=== PATIENT | female | born 1995 | race Caucasian/White ===

== ENCOUNTER 2021-09-28 14:20 | Emergency (ER) | payer OTHER, SELFPAY ==
--- NOTE | 2021-09-28 14:27 | ECG_ITS ---
Measurements Intervals [place] Rate: 113 P: 72 AL: 160 QRS: 79 QRSD: 91 T: 55 QT: 299 QTc: 410 Interpretive Statements SINUS TACHYCARDIA POSSIBLE LEFT ATRIAL ENLARGEMENT ST ABNORMALITY IN ANTEROLATERAL LEADS- CONSIDER ISCHEMIA BASELINE ARTIFACT- I, II, III, AVR, AVL ABNORMAL ECG Electronically Signed On 09-28-2021 15:27:48 PAIN MEDICINE PHYSICIAN by Cl Vargas D.O.
[2021-09-28 14:32] VITALS: BP 136/84; PULSE 100; RESP 18; TEMP 36.2; O2SAT 96
[2021-09-28] MEDS: SODIUM CHLORIDE 0.9% IV 500 ML 999 ML IV CONT (15:27)
[2021-09-28 15:29] LABS: Basophils Absolute Auto 0.02 K/mm3 (0.00-0.10); Basophils Percent Auto 0.2 % (0.0-1.0); Eosinophils Absolute Auto 0.03 K/mm3 (0.02-0.50); Eosinophils Percent Auto 0.4 % (1.0-6.0); Hematocrit 41.7 % (35.0-49.0); Hemoglobin 13.4 g/dL (12.0-15.0); Immature Granulocyte Absolute 0.02 K/mm3 (0.00-0.00); Immature Granulocyte Percent A 0.2 % (0.0-0.0); Lymphocytes Absolute Auto 1.13 K/mm3 (1.10-4.50); Mean Corpuscular HGB Conc 32.1 g/dL (32.0-36.0); Mean Corpuscular Hemoglobin 28.3 pg (27.0-31.0); Mean Platelet Volume 9.5 fl (9.2-11.8); Neutrophils Absolute Auto 6.5 K/mm3 (1.7-7.2); Neutrophils Percent Auto 80.2 % (50.0-70.0); Platelet Count Result 255 K/mm3 (150-420); Red Blood Count 4.74 M/mm3 (4.20-5.40); Red Cell Distribution Width 13.2 % (11.6-14.4); White Blood Count 8.1 K/mm3 (4.8-10.8)
--- NOTE | 2021-09-28 15:54 | ED.ARRPALP ---
HPI - Arrhythmia/Palpitations General Chief Complaint: Arrhythmia/Palpitations Stated Complaint: heart beating rapidly Source: patient and family Mode of arrival: ambulatory Limitations: no limitations History of Present Illness HPI narrative: this is a 26-year-old female that presents with her boyfriend has been having increased heart rate with palpitations, her father's recently diagnosed with atrial fibrillation, the patient appears anxious but denies having anxiety or panic attacks no significant past medical history there is no chest pain no shortness of breath no abdominal pain no flank pain no fever chills no nausea vomiting no diarrhea or constipation. heart rate has been as high as 113 but currently is 100. complaint: rapid heart beat Onset (ago): hour(s) Duration: intermittent Severity: mild Context: occurred during rest Associated symptoms: denies other symptoms Related Data Home Medications Medication Instructions Recorded Confirmed No Home Medications 09/28/21 09/28/21 Allergies Allergy/AdvReac Type Severity Reaction Status Date / Time No Known Allergies Allergy Verified 09/28/21 14:41 Review of Systems Review of Systems: All systems reviewed & are unremarkable except as noted in HPI and below PMFSH Past Medical History Medical History Patient denies medical problems Exam Const: General: healthy appearing, no acute distress and alert Orientation/consciousness: patient oriented x3 HENMT: Head: normal to inspection Eyes: Conjunctivae: conjunctivae normal Pupils: Equal, round and reactive pupils present EOM: EOMs intact bilaterally Direct Ophthalmoscopy: no photophobia Neck: Neck: normal visual inspection and no lymphadenopathy Chest: Chest palpation & inspection: normal inspection of the chest Resp: Effort & Inspection: normal respiratory effort Cardio: Rate: regular rate and tachycardic GI: Inspection: normal to inspection Percussion: Yes normal to percussion Auscultation: normal bowel sounds Back/Spine/Pelvis: Back: no CVA tenderness Skin: General skin exam: normal color and no rashes or lesions noted Neuro: General: oriented to person, oriented to place, oriented to time and patient oriented x3 Extrem: General: normal to inspection, full ROM and capillary refill normal Psych: Appearance: grossly normal and well kempt Course Course Emergency Course: Labs reviewed, patient received IV fluids and heart rate currently is in the low 90s patient is asymptomatic and advised to follow-up with her primary care physician. Vital Signs Vital signs: Vital Signs Temperature 36.2 C L 09/28/21 14:32 Pulse Rate 100 09/28/21 14:32 Respiratory Rate 18 09/28/21 14:32 Blood Pressure 136/84 09/28/21 14:32 Pulse Oximetry 96 09/28/21 14:32 Temperature 36.2 C L 09/28/21 14:32 Pulse Rate 100 09/28/21 14:32 Respiratory Rate 18 09/28/21 14:32 Blood Pressure 136/84 09/28/21 14:32 Pulse Oximetry 96 09/28/21 14:32 MDM - Arrhythmia/Palpitations Lab Data Result diagrams: 09/28/21 15:19 09/28/21 15:19 Labs: Lab Results 09/28/21 09/28/21 Range/Units 15:19 15:19 WBC 8.1 (4.8-10.8) K/mm3 RBC 4.74 (4.20-5.40) M/mm3 Hgb 13.4 (12.0-15.0) g/dL Hct 41.7 (35.0-49.0) % MCV 88.0 (78.0-102.0) fL MCH 28.3 (27.0-31.0) pg MCHC 32.1 (32.0-36.0) g/dL RDW 13.2 (11.6-14.4) % Plt Count 255 (150-420) K/mm3 MPV 9.5 (9.2-11.8) fl Immature Gran % (Auto) 0.2 H (0.0-0.0) % Neut % (Auto) 80.2 H (50.0-70.0) % Lymph % (Auto) 14.0 L (18.0-42.0) % [place] % (Auto) 5.0 (2.0-11.0) % Eos % (Auto) 0.4 L (1.0-6.0) % Baso % (Auto) 0.2 (0.0-1.0) % Lymph # (Auto) 1.13 (1.10-4.50) K/mm3 [place] # (Auto) 0.40 (0.10-0.90) K/mm3 Eos # (Auto) 0.03 (0.02-0.50) K/mm3 Baso # (Auto) 0.02 (0.00-0.10) K/mm3 Abs Immat Gran (auto) 0.02
[2021-09-28 15:57] LABS: Alanine Aminotransferase 18 U/L (14-59); Albumin Level 3.6 g/dL (3.4-5.0); Alkaline Phosphatase 101 U/L (46-116); Anion Gap 12 mmol/L (8-16); Aspartate Amino Transferase 12 U/L (15-37); Bilirubin,Total 0.3 mg/dL (0.00-1.00); Blood Urea Nitrogen 8 mg/dL (7-18); Calcium 9.3 mg/dL (8.5-10.1); Carbon Dioxide 24 mmol/L (21-32); Chloride 105 mmol/L (98-108); Estimated CRCL calculation 100 ml/min; Estimated Glomerular Filt Rate > 60; Glucose 104 mg/dL (70-99); Osmolality Calculated 290 mOsm/kg (285-295); Sodium 141 mmol/L (136-145); Thyroid Stimulating Hormone 1.02 uIU/mL (0.36-3.74); Total Protein 8.8 g/dL (6.4-8.2); Troponin I 4.9 ng/L (0.00-60.4)
[2021-09-28 16:09] VITALS: BP 114/77; PULSE 94; RESP 20; TEMP 37.1; O2SAT 97
== END 2021-09-28 16:13 | disposition home or self-care (01) ==
PROVIDERS: Emergency Provider Emergency Medicine; PCP Internal Medicine
DX: R00.2 Palpitations (principal); F41.9 Anxiety disorder, unspecified
CPT/HCPCS: 36415; 80053; 84443; 84484; 85025; 93005; 96360; 99283; 99284; J7040